=== PATIENT | male | born 1960 | race Caucasian/White ===

== ENCOUNTER → 2018-04-01 | Outpatient (CLI) | payer MEDICARE ==
[~2018-04-01] MED LIST: AMLODIPINE BESYL5 MG PO; CLONIDINE0.2 MG PO; COZAAR100 MG PO; ELIQUIS5 M1 PO; GLUCOPHAGE1000 MG PO; GLUCOPHAGE500 M1 PO; GLUCOTROL10 MG PO; Glipizide2.5 MG PO; LASIX40 MG PO; MOBIC7.5 MG PO; NOVOLOG MIX 70/33 ML SQ; TENORMIN100 MG PO; ZOCOR10 MG PO
== END | disposition home or self-care (01) ==
LOC: US 12:39
DX: I82.411 Acute embolism and thrombosis of right femoral vein (principal); I82.491 Acute embolism and thrombosis of other specified deep vein of right lower extremity; N43.3 Hydrocele, unspecified; N50.89 Other specified disorders of the male genital organs

== ENCOUNTER 2018-04-06 12:58 | Inpatient (IN) | payer MEDICARE ==
[~2018-04-06] VITALS: Ht 185.4 cm; Wt 167.0 kg
--- NOTE | ~2018-04-06 | EKG ---
[place], [place] ELECTROCARDIOGRAM REPORT NAME: THOMAS PERLA UNIT #: [id number] ROOM: 415 DOCTOR: FAYE DRAFT REPORT BIRTHDATE: [birth year] [facility] Test Date: 2018-04-06 Test Time: 14:17:49 Pat Name: THOMAS PERLA Department: ER Room: [place] Gender: M Director [employer]: : 1960 Requested By: RAQUEL OVALLES Order Number: [id number] Reading MD: Jagdeep Rios MD Measurements Intervals [place] Rate: 70 P: 49 [place]: 178 QRS: -61 QRSD: 157 T: 6 QT: 437 QTc: 472 Interpretive Statements Sinus rhythm RBBB and LAFB Electronically Signed On 04-06-2018 14:00:40 PDT by Jagdeep Rios MD CM:EKGRPT:ELECTROCARDIOGRAM REPORT [id number] RAQUEL ESTRADA DRAFT REPORT RAQUEL OVALLES DO
--- NOTE | ~2018-04-06 | PR ---
[place], [place] PROGRESS NOTE NAME: THOMAS PERLA UNIT #: [id number] ROOM: 415 DOCTOR: MENDEZ STEELE MD BIRTHDATE: [birth year] DOS: 04/06/2018 SUBJECTIVE: The patient has improving pain in his legs and improved swelling. PHYSICAL EXAMINATION: VITAL SIGNS: Blood pressure 155/88, heart rate 67 beats per minute, breathing 20 times per minute, temperature 98.2 degrees Fahrenheit. GENERAL APPEARANCE: The patient is alert and oriented x 3, in no visible distress. Obesity. HEENT AND NECK: Exam within normal limits. CARDIOVASCULAR SYSTEM: Heart rate is regular in rate and rhythm. S1 and S2 normally audible. LUNGS: Clear to auscultation. ABDOMEN: Soft, nontender. No obvious organomegaly. Bowel sounds are present. EXTREMITIES: Without significant cyanosis. Leg and pedal edema which is improving. IMPRESSION: 1. The patient with hypertension and elevated blood pressures are improving with treatment now, add Norvasc to the treatment. 2. The patient with right common femoral and superficial femoral and profunda veins deep vein thrombosis. The patient now anticoagulated with Eliquis. 3. Type 2 diabetes mellitus. Blood sugars are reasonably controlled. MENDEZ STEELE MD CM:PNTRANS [id number] MENDEZ STEELE MD 04/08/18 0339 interface
--- NOTE | ~2018-04-06 | WRIGHTHP ---
[place], [place] PATIENT HISTORY AND PHYSICAL EXAM [id number] UNIT #: [id number] ROOM: 415 DOCTOR: MENDEZ STEELE MD BIRTHDATE: [birth year] DOS: 04/06/2018 HISTORY OF PRESENT ILLNESS: The patient is a 58-year-old gentleman with a past medical history of: 1. Obesity. 2. Benign essential hypertension. 3. Type 2 diabetes mellitus. 4. 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 The patient presented to the Emergency Department with bilateral swelling in his legs and was found to have acute deep vein thrombosis bilaterally, nonocclusive DVT of the right common femoral, superficial femoral and profunda veins and he was also found to be hypertensive with a systolic blood pressure of 209/113 diastolic and he was recommended for admission and further management. The patient was given Lovenox in the Emergency Department and then I started him on apixaban. There are no complaints of any chest pain, no shortness of breath. No GI or urinary symptoms. REVIEW OF SYSTEMS: RESPIRATORY: No increasing shortness of breath. GASTROINTESTINAL: No nausea, vomiting, diarrhea, constipation. CARDIOVASCULAR: No chest pain or palpitations. HOME MEDICATIONS: Glipizide, metformin, insulin, apixaban, atenolol, losartan, clonidine. ALLERGIES: No known drug allergies. PHYSICAL EXAMINATION: GENERAL: Alert, oriented x 3, in no visible distress, obese. HEENT AND NECK: Extraocular movements are intact. Sclerae are anicteric. Oral mucosa is moist and clean. No obvious facial weakness. Neck is supple without any lymphadenopathy. No thyromegaly. No JVD. No carotid arterial bruits. LUNGS: Clear to auscultation. No wheezing. No rhonchi. CARDIOVASCULAR SYSTEM: Heart rate is regular in rate and rhythm. S1 and S2 normally audible. No significant murmur or any other abnormal cardiac sounds. ABDOMEN: Soft, nontender. No obvious organomegaly. Bowel sounds are present. No obvious herniation. EXTREMITIES: Bilateral leg swelling CENTRAL NERVOUS SYSTEM: Alert and oriented x 3. Cranial nerves II-XII are intact. Speech is normal. The patient is able to move all extremities. Normal muscle strength. Deep tendon reflexes are equal on both sides. Plantars were downgoing. IMPRESSION: 1. The patient with acute deep vein thrombosis of the right common femoral and superficial femoral and profunda veins. Has been admitted and started on anticoagulation. The patient will be gradually ambulated and then discharged to home. The patient already has a chronically placed IVC filter. 2. Benign essential hypertension with severely elevated blood pressures to be [place], [place] PATIENT HISTORY AND PHYSICAL EXAM NAME: THOMAS PERLA UNIT #: [id number] ROOM: [facility] DOCTOR: MENDEZ STEELE MD BIRTHDATE: [birth year] treated with Coreg, clonidine, losartan, atenolol, and blood pressures to be monitored and treated accordingly. 3. Type 2 diabetes mellitus. Blood sugars to be monitored and treated. The patient already on glipizide and metformin and insulin. All have been continued and he will be kept on no concentrated sweet diet. MENDEZ STEELE MD CM:HISPHYS:PATIENT HISTORY AND PHYSICAL EXAMINATION 07 20 MENDEZ STEELE MD 04/06/181820 interface
--- NOTE | ~2018-04-06 | DS ---
[place], [place] DISCHARGE SUMMARY NAME: THOMAS PERLA UNIT #: [id number] ROOM: 415 DOCTOR: MENDEZ STEELE MD BIRTHDATE: [birth year] DOS: 04/08/2018 DISCHARGE DIAGNOSES: 1. Hypertension with elevated blood pressures. 2. Right common femoral and superficial femoral and profunda veins deep vein thrombosis. 3. Type 2 diabetes mellitus. 4. Obesity. 5. Benign essential hypertension. 6. Type 2 diabetes mellitus. 7. Inferior vena cava filter placement in the past for previous DVT. HOSPITAL COURSE: The patient presented with bilateral leg swelling and he was found to have acute right common femoral, superficial femoral and profunda veins DVT for which he was started on apixaban and the leg swelling has resolved and the pain has resolved and he is ambulating normally. The patient worked with physical therapy. 1. Benign essential hypertension with elevated blood pressures 209/113. Blood pressure was recorded at admission and he was treated with his home medications for blood pressure control and I added Norvasc to the treatment. The patient's blood pressures are improving and will be discharged to home to follow up with his PCP within a week. 2. Type 2 diabetes mellitus. The patient remains on metformin and insulin. Blood sugars are reasonably controlled. 3. Morbid obesity with a BMI of 48.5. The patient worked with dietary. LABORATORY DATA: Normal serum electrolytes. Normal CBC. Testicular ultrasound showed bilateral testicular nephrolithiasis and bilateral scrotal hydrocele, but no focal mass. This was done as an outpatient. DISCHARGE MANAGEMENT: Amlodipine 10 mg a day, metformin 1000 mg daily and 500 mg at bedtime. Glipizide 10 mg daily. NPH insulin 15 units subcutaneously b.i.d., apixaban 5 mg b.i.d., atenolol 100 mg daily, losartan 100 mg daily, clonidine 0.2 mg at bedtime. Follow with PCP within a week. [place], [place] DISCHARGE SUMMARY NAME: THOMAS PERLA UNIT #: [id number] ROOM: 415 DOCTOR: MENDEZ STEELE MD BIRTHDATE: [birth year] MENDEZ STEELE MD CM:NATAN [id number] MENDEZ STEELE MD 04/08/18 1441 interface
[~2018-04-06 12:58] MED LIST changes: -AMLODIPINE BESYL5 MG PO; -CLONIDINE0.2 MG PO; -COZAAR100 MG PO; -ELIQUIS5 M1 PO; -GLUCOPHAGE1000 MG PO; -GLUCOPHAGE500 M1 PO; -GLUCOTROL10 MG PO; -Glipizide2.5 MG PO; -MOBIC7.5 MG PO; -NOVOLOG MIX 70/33 ML SQ; -TENORMIN100 MG PO; -ZOCOR10 MG PO
[2018-04-06 13:01] VITALS: BP 207/104
[2018-04-06] MEDS ORDERED: GLUCOPHAGE1000 MG PO ×2 (13:18→16:05)
[2018-04-06] MEDS ORDERED: Glipizide2.5 MG PO (13:19)
[2018-04-06] MEDS ORDERED: ZOCOR10 MG PO (13:19)
[2018-04-06 14:13] LABS: BASO # 0.1 10*3/uL (0.0-0.1); BASO % 0.8 % (0.0-1.0); EOS # 0.2 10*3/uL (0.0-0.4); EOS % 3.2 % (1.0-4.0); HEMATOCRIT 47.1 % (42.0-52.0); HEMOGLOBIN 16.1 g/dl (14.0-18.0); LYMPH # 1.6 10*3/uL (1.3-4.4); LYMPH % 24.3 % (27.0-41.0); MEAN CELL VOLUME 90.9 fl (80.0-94.0); MEAN CORPUSCULAR HGB 31.1 pg (27.0-31.0); MEAN CORPUSCULAR HGB CONC 34.2 g/dl (33.0-37.0); MEAN PLATELET VOLUME 10.5 fl (9.6-12.3); MONO # 0.6 10*3/uL (0.1-1.0); MONO % 8.3 % (3.0-9.0); NEUT # 4.2 10*3/uL (2.3-7.9); NEUT % 63.1 % (47.0-73.0); PLATELET COUNT AUTOMATED 193 10*3/uL (130-400); RED BLOOD COUNT 5.18 10*6/uL (4.50-5.90); RED CELL DISTRI WIDTH 11.9 % (0-14.5); WHITE BLOOD COUNT 6.7 10*3/uL (4.8-10.8)
[2018-04-06 14:20] LABS: ACT PARTIAL THROMBO TIME 22.9 SECONDS (20.8-31.5); INTERNATIONAL NORM RATIO 0.9 (2.0-3.5)
[2018-04-06 14:21] VITALS: BP 188/102
[2018-04-06 14:25] LABS: ALBUMIN 4.2 gm/dl (3.1-4.5); ALKALINE PHOSPHATASE 54 U/L (45-117); BUN 11 mg/dl (7-24); CHLORIDE 99 mmol/L (98-107); CREATININE 1.04 mg/dL (0.70-1.30); LIPASE 168 U/L (73-393); SGOT/AST 19 IU/L (3-35); SGPT/ALT 30 U/L (12-78); SODIUM 136 mmol/L (136-145); TOTAL PROTEIN 8.2 gm/dL (6.4-8.2)
[2018-04-06 14:26] LABS: TROPONIN I < 0.015 ng/ml (<0.045)
[2018-04-06 15:13] VITALS: BP 194/95
[2018-04-06 15:50] VITALS: BP 196/104
[2018-04-06] MEDS ORDERED: GLUCOPHAGE500 M1 PO (16:05)
[2018-04-06] MEDS ORDERED: NOVOLOG MIX 70/33 ML SQ (16:06)
[2018-04-06] MEDS ORDERED: COZAAR100 MG PO (16:06)
[2018-04-06] MEDS ORDERED: MOBIC7.5 MG PO (16:07)
[2018-04-06] MEDS ORDERED: CLONIDINE0.2 MG PO (16:07)
[2018-04-06] MEDS ORDERED: GLUCOTROL10 MG PO (16:07)
[2018-04-06] MEDS ORDERED: TENORMIN100 MG PO (16:07)
[2018-04-06 18:48] VITALS: BP 164/79
[2018-04-06 20:00] VITALS: BP 149/81
[2018-04-07] VITALS: BP 146/84
[2018-04-07 07:07] LABS: BASO # 0.1 10*3/uL (0.0-0.1); BASO % 0.8 % (0.0-1.0); EOS # 0.2 10*3/uL (0.0-0.4); EOS % 3.8 % (1.0-4.0); HEMATOCRIT 43.4 % (42.0-52.0); HEMOGLOBIN 14.5 g/dl (14.0-18.0); LYMPH # 1.9 10*3/uL (1.3-4.4); LYMPH % 29.5 % (27.0-41.0); MEAN CELL VOLUME 93.3 fl (80.0-94.0); MEAN CORPUSCULAR HGB 31.2 pg (27.0-31.0); MEAN CORPUSCULAR HGB CONC 33.4 g/dl (33.0-37.0); MEAN PLATELET VOLUME 10.5 fl (9.6-12.3); MONO # 0.6 10*3/uL (0.1-1.0); MONO % 9.2 % (3.0-9.0); NEUT # 3.6 10*3/uL (2.3-7.9); NEUT % 56.5 % (47.0-73.0); PLATELET COUNT AUTOMATED 173 10*3/uL (130-400); RED BLOOD COUNT 4.65 10*6/uL (4.50-5.90); RED CELL DISTRI WIDTH 12.1 % (0-14.5); WHITE BLOOD COUNT 6.3 10*3/uL (4.8-10.8)
[2018-04-07 07:37] LABS: BUN 12 mg/dl (7-24); CHLORIDE 99 mmol/L (98-107); CREATININE 0.93 mg/dL (0.70-1.30); POTASSIUM 4.3 mmol/L (3.5-5.1); SODIUM 135 mmol/L (136-145)
[2018-04-07 08:00] VITALS: BP 160/80
[2018-04-07 12:00] VITALS: BP 155/88
[2018-04-07 16:00] VITALS: BP 160/90
[2018-04-07 20:00] VITALS: BP 152/90
[2018-04-08] VITALS: BP 158/90
[2018-04-08 08:00] VITALS: BP 159/94
[2018-04-08] MEDS ORDERED: AMLODIPINE BESYL5 MG PO (13:14)
[2018-04-08] MEDS ORDERED: ELIQUIS5 M1 PO (13:14)
== END 2018-04-08 13:59 | disposition home or self-care (01) | DRG 300 ==
LOC: ED 12:58 → 4E 14:54 → EDHOLD 14:54 → 4E 15:09
PROVIDERS: Emergency Medicine; Internal Medicine
DX: I82.411 Acute embolism and thrombosis of right femoral vein (principal); Z68.42 Body mass index [BMI] 45.0-49.9, adult; I10 Essential (primary) hypertension; E11.9 Type 2 diabetes mellitus without complications; E66.01 Morbid (severe) obesity due to excess calories; Z79.4 Long term (current) use of insulin; Z79.899 Other long term (current) drug therapy

== ENCOUNTER → 2018-04-26 | Outpatient (CLI) | payer MEDICARE ==
[~2018-04-26] MED LIST changes: +AMLODIPINE BESYL5 MG PO; +CLONIDINE0.2 MG PO; +COZAAR100 MG PO; +ELIQUIS5 M1 PO; +GLUCOPHAGE1000 MG PO; +GLUCOPHAGE500 M1 PO; +GLUCOTROL10 MG PO; +Glipizide2.5 MG PO; +MOBIC7.5 MG PO; +NOVOLOG MIX 70/33 ML SQ; +TENORMIN100 MG PO; +ZOCOR10 MG PO
[2018-04-26 14:00] LABS: BILIRUBIN NEGATIVE (NEGATIVE); BLOOD NEGATIVE (NEGATIVE); CLARITY CLEAR (CLEAR); COLOR YELLOW (YELLOW); GLUCOSE 1+ (NEGATIVE); KETONE NEGATIVE (NEGATIVE); LEUKO ESTERASE NEGATIVE (NEGATIVE); NITRITE NEGATIVE (NEGATIVE); UROBILINOGEN 0.2 E.U./dl (0.2-1.0)
[2018-04-26 14:06] LABS: BACTERIA 1+; RBC 0-2 rbc/hpf (0-2); WBC 0-2 wbc/hpf (0-5)
[2018-04-26 14:32] LABS: ALBUMIN 4.2 gm/dl (3.1-4.5); ALKALINE PHOSPHATASE 55 U/L (45-117); BUN 13 mg/dl (7-24); CHLORIDE 99 mmol/L (98-107); CREATININE 0.99 mg/dL (0.70-1.30); POTASSIUM 4.1 mmol/L (3.5-5.1); SGOT/AST 19 IU/L (3-35); SGPT/ALT 31 U/L (12-78); SODIUM 136 mmol/L (136-145); TOTAL PROTEIN 8.1 gm/dL (6.4-8.2)
[2018-04-26 14:33] LABS: LDH 172 U/L (87-241)
[2018-04-26 14:34] LABS: BETA-HCG, TUMOR MARKER < 1.0 mIU/mL (<1)
[2018-04-26 14:43] LABS: BASO # 0.1 10*3/uL (0.0-0.1); BASO % 0.8 % (0.0-1.0); EOS # 0.3 10*3/uL (0.0-0.4); EOS % 3.4 % (1.0-4.0); HEMATOCRIT 46.7 % (42.0-52.0); HEMOGLOBIN 15.8 g/dl (14.0-18.0); LYMPH # 2.1 10*3/uL (1.3-4.4); LYMPH % 28.2 % (27.0-41.0); MEAN CELL VOLUME 91.7 fl (80.0-94.0); MEAN CORPUSCULAR HGB CONC 33.8 g/dl (33.0-37.0); MEAN PLATELET VOLUME 10.7 fl (9.6-12.3); MONO # 0.6 10*3/uL (0.1-1.0); MONO % 8.4 % (3.0-9.0); NEUT # 4.4 10*3/uL (2.3-7.9); NEUT % 58.9 % (47.0-73.0); PLATELET COUNT AUTOMATED 228 10*3/uL (130-400); RED BLOOD COUNT 5.09 10*6/uL (4.50-5.90); RED CELL DISTRI WIDTH 11.8 % (0-14.5); WHITE BLOOD COUNT 7.4 10*3/uL (4.8-10.8)
[2018-04-27 09:08] LABS: PROSTATE SPECIFIC AG FREE 0.05 ng/mL; PROSTATE SPECIFIC AG, SERUM 0.2 ng/mL (0.0-4.0)
== END | disposition home or self-care (01) ==
LOC: LAB 12:59 → US 13:30
PROVIDERS: Urology
DX: N50.89 Other specified disorders of the male genital organs (principal); N28.89 Other specified disorders of kidney and ureter; D40.0 Neoplasm of uncertain behavior of prostate; I10 Essential (primary) hypertension

== ENCOUNTER → 2024-04-29 | Outpatient (CLI) | payer MEDICARE ==
[~2024-04-29] MED LIST changes: +CARDURA4 MG PO
== END | disposition home or self-care (01) ==
LOC: US 05:02
PROVIDERS: ATTEND Internal Medicine
DX: R59.0 Localized enlarged lymph nodes (principal)